=== PATIENT | male | born 1980 | race Caucasian/White ===

== ENCOUNTER 2018-01-06 17:18 | Emergency (ER) | payer OTHER ==
[~2018-01-06] VITALS: Ht 188 cm; Wt 163.3 kg
[2018-01-06] MEDS ORDERED: [UNRECOGNIZED DRUG - OTHER] PO (17:30)
[2018-01-06] MEDS ORDERED: OMEPRAZOLE 20 M20 M1 PO (17:30)
[2018-01-06] MEDS ORDERED: IBUPROFEN 800800 M1 PO (18:26)
[2018-01-06] MEDS ORDERED: FLEXERIL PO (18:26)
[2018-01-06 18:34] VITALS: BP 139/96
== END 2018-01-06 18:35 | disposition home or self-care (01) ==
LOC: M.ERS 17:18
DX: M25.511 Pain in right shoulder (principal); K21.9 Gastro-esophageal reflux disease without esophagitis; Z88.0 Allergy status to penicillin; Z88.1 Allergy status to other antibiotic agents; Z88.8 Allergy status to other drugs, medicaments and biological substances